=== PATIENT | male | born 1970 | race Hispanic/Latino ===

== ENCOUNTER 2017-06-12 13:15 | Emergency (ER) | payer OTHER, BC ==
[~2017-06-12] VITALS: Ht 167.6 cm; Wt 109.0 kg
[~2017-06-12 13:15] MED LIST: ACCU-CHEK AVIVAP100 SC; ACCU-CHEK SOFTCLIX SC; ASPIRIN 8181 MG PO; DEPO-MEDROL80 MG/ML IM; FLEXERIL5 M1 PO; FLEXERIL5 MG PO; LISINOPRIL2.5 MG PO; METFORMIN HCL1000 MG PO; NAPROSYN500 MG PO; PRAVASTATIN SOD10 MG PO; TRAMADOL HCL50 MG PO; TRIAMCINOLON0.11 EX
[2017-06-12] MEDS ORDERED: METFORMIN500 M2 PO (13:56)
[2017-06-12] MEDS ORDERED: FLEXERIL PO (15:12)
[2017-06-12] MEDS ORDERED: MOTRIN800 MG PO (15:12)
[2017-06-12] MEDS ORDERED: TRAMADOL HYDROC50 MG PO (15:12)
[2017-06-12 15:15] VITALS: BP 131/74
== END 2017-06-12 15:15 | disposition home or self-care (01) | DRG 563 ==
LOC: ED 13:15
DX: S39.012A Strain of muscle, fascia and tendon of lower back, initial encounter (principal); X50.0XXA Overexertion from strenuous movement or load, initial encounter; Y93.89 Activity, other specified; Y92.89 Other specified places as the place of occurrence of the external cause